=== PATIENT | female | born 1980 | race Caucasian/White ===

== ENCOUNTER → 2018-09-20 | Outpatient (CLI) | payer BC ==
[~2018-09-20] MED LIST: CEPH500C PO; CETI10CA PO; DOCU100C37 PO; FERR-84 PO; IBP600T1 PO; IBUP-1773 PO; METO25TA2 PO; OXYC-471 PO; PREN1TAB39; VALA500T4 PO
--- NOTE | 2018-09-20 16:46 | Diagnostic Imaging Report ---
INDICATION: patient, survey. TECHNIQUE: Multiple real-time grayscale images were obtained over the gravid uterus. COMPARISON: None. FINDINGS: A single live intrauterine fetus is seen measuring at 20 weeks 3 days in size by composite measurements. Fetus is in cephalic presentation. Amniotic fluid appears qualitatively normal. Cervical length is 5.1 cm. Placenta is grade 2 and fundal with no evidence of previa. heart rate is 143 beats per minute. Maternal adnexa could not be visualized. survey showed no detectable abnormalities with normal-appearing kidneys, bladder, stomach, and intracranial ventricles. Four-chamber heart view is unremarkable. Three-vessel cord and cord insertion were normal. spine appeared unremarkable. Biometrical measurements are as follows: Biparietal 4.5 cm, age 19 weeks 5 days. Head circumference 16.88 cm, age 19 weeks 4 days. Abdominal circumference 16.49 cm, age 21 weeks 4 days. Femur length 3.33 cm, age 20 weeks 3 days. Sonographic estimate age: 20 weeks 3 days. Sonographic estimated date of delivery: 02/04/2018. Estimated Weight: 380 gm (+/- 56 gm). LMP percentile: 98%. heart rate: 143 beats per minute. number: 1 of 1. IMPRESSION: Single live intrauterine fetus measuring 20 weeks 3 days in size with no detectable abnormalities. Dictated by: Dictated on workstation # [id number]
== END ==
LOC: RAD 15:19
PROVIDERS: ATTEND Obstetrics & Gynecology
DX: Z36.89 Encounter for other specified antenatal screening (principal); Z3A.20 20 weeks gestation of pregnancy
CPT/HCPCS: 76805

== ENCOUNTER 2019-01-31 15:26 | Outpatient (CLI) | payer BC, MEDICAID ==
[~2019-01-31] VITALS: Ht 165.1 cm; Wt 91.7 kg
== END 2019-01-31 16:15 | disposition home or self-care (01) ==
LOC: PREOP 15:26
PROVIDERS: ATTEND Obstetrics & Gynecology
DX: Z01.818 Encounter for other preprocedural examination (principal)
CPT/HCPCS: 87081

== ENCOUNTER 2019-02-04 04:31 | Inpatient (IN) | payer BC, MEDICAID ==
[2019-02-04] VITALS (7 sets, daily range): BP systolic 130–162; BP diastolic 76–92
[~2019-02-04] VITALS: Ht 167.6 cm; Wt 94.4 kg
[2019-02-04] MEDS ORDERED: LACTATED RINGERS 1,000 ML IV ONE (04:53)
[2019-02-04] MEDS ORDERED: CITRIC ACID/SOB CIT (BICITRA) 30 ML UDC ONE (04:53)
[2019-02-04] MEDS ORDERED: ceFAZolin 2 GM IV Premixed 50 ML ONE (04:53)
[2019-02-04] MEDS ORDERED: METOCLOPRAMIDE INJ 10 MG/2 ML (REGLAN) ONE (04:53)
[2019-02-04] MEDS ORDERED: FAMOTIDINE 20MG/2ML IV (PEPCID) ONE (04:53)
--- NOTE | 2019-02-04 06:05 | NUR ---
MONICA WHITMORE presented to unit via ambulation from home, for repeat section. MONICA WHITMORE weighed, gowned, voided, and to bed. EFHM and TOCO applied, VS taken. MONICA WHITMORE oriented to bed controls, call light, TV, heat, and A/C controls.
[2019-02-04] MEDS ORDERED: LACTATED RINGERS 1,000 ML IV PRN (06:12)
--- OUTSIDE RECORDS SUMMARY | 2019-02-04 06:14 | XMS REPORT ---
Author Author MORGANJOSE Organization [facility] Address [address] [place] [address] Care Team Providers Care Spareribs Trimmer Name Role Phone MORGANJOSE Baron Unavailable PROBLEMS Type Condition ICD9-CM Code [id number] Code Onset Dates Condition Status SNOMED Code Problem Unspecified myalgia and myositis 729.1 Active 844413580 Problem Other malaise and fatigue 780.79 Active 114836411 ALLERGIES Substance Reaction Event Type Date Status N.K.D.A. Unknown Non Drug Allergy Sep, Unknown SOCIAL HISTORY No smoking Hx information available PLAN OF CARE Activity Details Follow Up prn Reason: VITAL SIGNS Height 66 in 2016-10-11 Weight 181 lbs 2016-10-11 Temperature 97.7 degrees Fahrenheit 2016-10-11 Heart Rate 88 bpm 2016-10-11 Respiratory Rate 16 2016-10-11 BMI 29.21 kg/m2 2016-10-11 Blood pressure systolic 128 mmHg 2016-10-11 Blood pressure diastolic 88 mmHg 2016-10-11 MEDICATIONS Medication Instructions Dosage Frequency Start Date End Date Duration Status iron 1 tab Active Amoxicillin 500 MG Orally every 12 hrs 1 capsule 12h Sep, Sep, 10 day(s) Active ZyrTEC Active Zinc ... Orally Once a day 1 tablet 24h Active RESULTS Name Result Date Reference Range STREP A (IN HOUSE) 2016-10-13 STREP A Positive Control + Lot # [id number] Exp date 05/02/18 PROCEDURES Procedure Date Ordered Related Diagnosis Body Site STREP A ASSAY W/OPTIC Oct 11, 2016 Office Visit, Est Pt., Level 3 Oct 11, 2016 IMMUNIZATIONS No Known Immunizations
--- OUTSIDE RECORDS SUMMARY | 2019-02-04 06:14 | XMS REPORT ---
Author Author Migration, Doctor Organization [facility] Address Unknown Phone Unavailable Care Team Providers Care Metal Reed Tuner Name Role Phone Migration, Doctor Unavailable Unavailable PROBLEMS Type Condition ICD9-CM Code [id number] Code Onset Dates Condition Status SNOMED Code Problem Other malaise and fatigue 780.79 Active 004680072 Problem Unspecified myalgia and myositis 729.1 Active 053713010 ALLERGIES No Information ENCOUNTERS Encounter Location Date Diagnosis [facility] [id number] [place] [phone] 15 Apr, 2017 Middle ear effusion, right H65.91 [facility] [id number] [place] [phone] 17 Sep, 2016 Sore throat J02.9 and Strep pharyngitis J02.0 [facility] [id number] [place] [phone] Jan, [facility] [id number] [place] [phone] Jan, [facility] [id number] [place] [phone] Dec, [facility] [id number] [place] [address] [phone] Dec, [facility] [id number] [place] [phone] Apr, IMMUNIZATIONS No Known Immunizations SOCIAL HISTORY Never Assessed REASON FOR VISIT EMR-[facility] PLAN OF CARE VITAL SIGNS MEDICATIONS Medication Instructions Dosage Frequency Start Date End Date Duration Status Metoprolol Tartrate 25 mg take 1/2 tablet once daily Dec, Active RESULTS No Results PROCEDURES No Known procedures INSTRUCTIONS MEDICATIONS ADMINISTERED No Known Medications MEDICAL (GENERAL) HISTORY Type Description Date Surgical History section
--- OUTSIDE RECORDS SUMMARY | 2019-02-04 06:14 | XMS REPORT | Clinical Summary ---
Author Author [facility] Organization [facility] Address Unknown Phone Unavailable Care Team Providers Care Room Service Server Name Role Phone Patrick Pool MD PCP Beena Nicholas MD Unavailable Source Comments Some departments are not documenting in the electronic medical record. If you do not see the information that you expected, contact Release of Information in the Health Information Management department at [phone] for further assistance in locating additional records.[facility] Allergies No Known Allergies Medications End Date Status Medication Sig Dispensed Refills Start Date Active enalapril (VASOTEC) 10 mg Take 10 mg by 0 tablet mouth daily. Active Problems Problem Noted Date Gestational trophoblastic disease 10/10/2013 Overview: 10/10/13 CT CHEST W/CONTRAST Component Value Range Impression Value: CT CHEST W/CONTRAST IMPRESSION: CHEST: 1. 3 MM NODULAR OPACITY IN THE LEFT UPPER LOBE WHICH LIKELY REPRESENTS A SMALL SCAR OR GRANULOMA. CONTINUED CT SURVEILLANCE IS SUGGESTED. 2. NO THORACIC LYMPHADENOPATHY. ABDOMEN/PELVIS: 1. NO EVIDENCE OF ABDOMINOPELVIC METASTATIC DISEASE. 2. TRACE PELVIC FREE FLUID WHICH IS LIKELY PHYSIOLOGIC. Started weekly methotrexate at 50 mg/m2 On 10/13/2013 with cycle #4 on 11/03/2013., #5 on 11/10/2013. B-hC10/12/2013: 6; 10/20/2013: 4; 10/27/2013: < 2.0; 11/03/13: < 2; 11/10/2013: < 2; 11/18/2013: < 2 L ast Assessment & Plan: 11/21/2013. Clinically she is doing well and has recovered from her last shot of MTX which was given on 11/10/2013. She had no problems except for a sweet taste at the back of her tongue, she is still having FAGAN behind her Right ear, but her PCP is continuing that work up. On examination, her uterus is small, approximately 6 week size. PLAN: Monthly B-hCG x 12 months. Remain on OCPs for 1 year. I did tell her that she can switch to the 3 month packet to reduce her menstrual cycle number. Once she is off OCPs, should she desire another , as soon as she misses a period, she is to perform a urine test and then proceed to her competitive intelligence manager for serum B-hCG. Recurrence risk was re discussed as 3-9%. To keep her appointment with Dr. Foote in 12/2013. If evidence for recurrence, I will see her back. Elevated serum hCG 10/10/2013 HTN (hypertension) 10/10/2013 Persistent headaches 10/10/2013 Social History Date Tobacco Use Types Packs/Day Years Used Never Assessed Sex Assigned at Date Recorded Not on file Industry Job Start Date Occupation Not on file Not on file Not on file Travel End Travel History Travel Start No recent travel history available. Last Filed Vital Signs Time Taken Vital Sign Reading 11/21/2013 4:49 PM [employer] Blood Pressure 132/80 11/21/2013 4:49 PM [employer] Pulse 76 11/21/2013 4:49 PM [employer] Temperature 36.9 C (98.4 F) - Respiratory Rate - 11/21/2013 4:49 PM [employer] Oxygen Saturation 100% - Inhaled Oxygen - Concentration 11/21/2013 4:49 PM [employer]ITARY INSPECT[employer] Weight 69.5 kg (153 lb 3.2 oz) 11/21/2013 4:49 PM [employer]ARY INSPECT[employer] Height 163.8 cm (5' 4.5") 11/21/2013 4:49 PM [employer]ITARY INSPECTOR Body Mass Index 25.89 Plan of Treatment Health Maintenance Due Date Last Done Comments PHYSICAL (COMPREHENSIVE) 1989 EXAM HIV SCREENING 1997 DTAP/TDAP VACCINES (1 - 2000 Tdap) CERVICAL CANCER SCREENING 2012 INFLUENZA VACCINE 05/26/2019 Results Not on filefrom Last 3 Months Insurance Type Payer Benefit Subscriber ID Effective Phone Address Plan / Dates Group PPO [employer] xxxxxxxxxxxx [id number] PREF CARE resent Advance Directives Patient has advance care planning documents on file. For more information, please contact: [address] [address]
--- OUTSIDE RECORDS SUMMARY | 2019-02-04 06:14 | XMS REPORT ---
Author Author ELENI DENNISON Organization [facility] Address [address] [place] [address] Care Team Providers Care Roller Printer Name Role Phone ELENI DENNISON Unavailable PROBLEMS Type Condition ICD9-CM Code URN11-OR Code Onset Dates Condition Status SNOMED Code Problem Unspecified myalgia and myositis 729.1 Active 475825078 Problem Other malaise and fatigue 780.79 Active 244554893 ALLERGIES No Known Allergies ENCOUNTERS Encounter Location Date Diagnosis [facility] [id number] [place] [phone] Apr, Middle ear effusion, right H65.91 [facility] [id number] [place] [phone] Sep, 2016 Sore throat J02.9 and Strep pharyngitis J02.0 [facility] [id number] [place] [phone] 14 Jan, 2015 [place] [id number] [place] [phone] Jan, [facility] [id number] [place] [phone] Dec, [place] [id number] [place] [phone] Dec, [address] [phone] Apr, IMMUNIZATIONS No Known Immunizations SOCIAL HISTORY Never Assessed REASON FOR VISIT Right ear pain for about 3 days JStrasserRN PLAN OF CARE Activity Details Follow Up prn Reason: VITAL SIGNS Height 66 in 2017-05-09 Weight 167.2 lbs 2017-05-09 Temperature 97.9 degrees Fahrenheit 2017-05-09 Heart Rate 80 bpm 2017-05-09 Respiratory Rate 18 2017-05-09 BMI 26.98 kg/m2 2017-05-09 Blood pressure systolic 128 mmHg 2017-05-09 Blood pressure diastolic 90 mmHg 2017-05-09 MEDICATIONS Medication Instructions Dosage Frequency Start Date End Date Duration Status PredniSONE 20 MG Orally Once a day 2 tablet 24h Apr, Apr, 5 days Active RESULTS No Results PROCEDURES No Known procedures INSTRUCTIONS MEDICATIONS ADMINISTERED No Known Medications MEDICAL (GENERAL) HISTORY Type Description Date Surgical History section
[2019-02-04] MEDS ORDERED: ceFAZolin 2 GM IV Premixed 50 ML IV ONE (06:15)
--- OUTSIDE RECORDS SUMMARY | 2019-02-04 06:15 | XMS REPORT | Continuity of Care Document ---
Author Organization Unknown Address Unknown Allergies Active Description Code Type Severity Reaction Onset Reported/Identified Relationship to Patient Clinical Status Yes No Known Drug Allergies [id number] Drug Allergy Mild N/A 12/09/2009 Yes hydrocodone [id number] Drug Allergy Moderate GI UPSET 09/11/2016 Medications There is no data. Problems Date Dx Coded Attending Type Code Diagnosis Diagnosed By 03/01/2010 Ot 285.9 ANEMIA NOS 03/01/2010 Ot 648.22 ANEMIA- DELIVERED W P/P 03/01/2010 Ot 654.21 PREV DELIVRY W/ OR W/O MENT ANT 03/01/2010 Ot V27.0 DELIVER- SINGLE LIVEBORN 05/04/2010 ARIANA JARAMILLO DO 461.9 ACUTE SINUSITIS, UNSPECIFIED 05/26/2011 ARIANA JARAMILLO DO V70.5 PREEMPLOYMENT/PRESCHOOL EXAM 01/03/2014 ARIANA JARAMILLO DO 729.1 MYALGIA AND MYOSITIS UNSPECIFIED 01/03/2014 ARIANA JARAMILLO DO 780.79 OTHER MALAISE AND FATIGUE 09/05/2014 DEYANIRA THOMAS Ot 236.1 [facility] 09/05/2014 DEYANIRA THOMAS Ot V58.69 OT MED,LT,CURRENT USE 09/08/2014 MAN SCHULZ TECHNICAL OPERATIONS MANAGER Ot 729.81 09/08/2014 MAN SCHULZ TECHNICAL OPERATIONS MANAGER Ot 236.1 09/08/2014 MAN SCHULZ TECHNICAL OPERATIONS MANAGER Ot V58.69 09/08/2014 DEYANIRA THOMAS Ot 236.1 09/08/2014 DEYANIRA THOMAS Ot V58.69 09/14/2014 MAN SCHULZ TECHNICAL OPERATIONS MANAGER Ot 236.1 09/14/2014 MAN SCHULZ TECHNICAL OPERATIONS MANAGER Ot V58.69 09/27/2014 DEYANIRA THOMAS Ot 236.1 09/27/2014 DEYANIRA THOMAS Ot V58.69 09/27/2014 MARTHA, BOBAN N Ot 236.1 09/27/2014 MARTHA, BOBAN N Ot V58.69 09/28/2014 MARTHA, BOBAN N Ot 236.1 09/28/2014 MARTHA, BOBAN N Ot V58.69 10/09/2014 MAN SCHULZ S TECHNICAL OPERATIONS MANAGER Ot 729.81 10/09/2014 SCHULZIVONAH S TECHNICAL OPERATIONS MANAGER Ot 236.1 10/09/2014 ZEUS HILAH S TECHNICAL OPERATIONS MANAGER Ot V58.69 10/09/2014 MARTHA, BOBAN N Ot 236.1 10/09/2014 MARTHA, BOBAN N Ot V58.69 11/23/2014 IVON SCHULZAH S TECHNICAL OPERATIONS MANAGER Ot 729.81 11/23/2014 IVON SCHULZAH S TECHNICAL OPERATIONS MANAGER Ot 236.1 11/23/2014 SCHULZ HILAH S TECHNICAL OPERATIONS MANAGER Ot V58.69 11/23/2014 MARTHA, BOBAN N Ot 236.1 11/23/2014 MARTHA, BOBAN N Ot V58.69 11/24/2014 MARTHA, BOBAN N Ot 236.1 11/24/2014 MARTHA, BOBAN N Ot V58.69 12/14/2014 MARTHA, BOBAN N Ot 236.1 12/14/2014 MARTHA, BOBAN N Ot V58.69 12/26/2014 MARTHA, BOBAN N Ot 236.1 [facility] 12/26/2014 MARTHA, BOBAN N Ot V58.69 OT MED,LT,CURRENT USE 01/24/2015 MAN SCHULZ S TECHNICAL OPERATIONS MANAGER Ot 729.81 01/24/2015 MAN SCHULZ S TECHNICAL OPERATIONS MANAGER Ot 236.1 01/24/2015 SCHULZIVONAH S TECHNICAL OPERATIONS MANAGER Ot V58.69 01/24/2015 MARTHA, BOBAN N Ot 236.1 01/24/2015 MARTHA, BOBAN N Ot V58.69 01/29/2015 MARTHA, BOBAN N Ot 236.1 01/29/2015 MARTHA, BOBAN N Ot V58.69 01/29/2015 MARTHA, BOBAN N Ot 236.1 01/29/2015 MARTHA, BOBAN N Ot V58.69 01/30/2015 MARTHA, BOBAN N Ot 236.1 01/30/2015 DEYANIRA THOMAS N Ot V58.69 02/07/2015 DEYANIRA THOMAS N Ot 236.1 02/07/2015 DEYANIRA THOMAS N Ot V58.69 03/24/2015 DEYANIRA THOMAS N Ot 236.1 03/24/2015 DEYANIRA THOMAS N Ot V58.69 04/13/2015 MAN SCHULZ S TECHNICAL OPERATIONS MANAGER Ot 236.1 04/13/2015 MAN SCHULZ S TECHNICAL OPERATIONS MANAGER Ot V58.69 04/13/2015 SCHULZMAN Stephens S TECHNICAL OPERATIONS MANAGER Ot 729.81 04/13/2015 SCHULZMAN Stephens S TECHNICAL OPERATIONS MANAGER Ot 236.1 04/13/2015 MAN SCHULZ S TECHNICAL OPERATIONS MANAGER Ot V58.69 04/13/2015 DEYANIRA THOMAS N Ot 236.1 04/13/2015 DEYANIRA THOMAS N Ot V58.69 04/13/2015 SCHULZ, HILAH S TECHNICAL OPERATIONS MANAGER Ot 236.1 04/13/2015 MAN SCHULZ S TECHNICAL OPERATIONS MANAGER Ot V58.69 04/29/2015 DEYANIRA THOMAS N Ot 236.1 [facility] 04/29/2015 DEYANIRA THOMAS N Ot V58.69 OTH MED,LT,CURRENT USE 06/12/2016 MAN SCHULZ S TECHNICAL OPERATIONS MANAGER Ot 729.81 SWELLING OF LIMB 06/12/2016 SCHULZMAN Stephens S TECHNICAL OPERATIONS MANAGER Ot 236.1 [facility] 06/12/2016 MAN SCHULZ S TECHNICAL OPERATIONS MANAGER Ot V58.69 OTH MED,LT,CURRENT USE 06/12/2016 MAN SCHULZ S TECHNICAL OPERATIONS MANAGER Ot 236.1 [facility] 06/12/2016 MAN SCHULZ S TECHNICAL OPERATIONS MANAGER Ot V58.69 OTH MED,LT,CURRENT USE 06/12/2016 DEYANIRA THOMAS N Ot 236.1 [facility] 06/12/2016 DEYANIRA THOMAS N Ot V58.69 OTH MED,LT,CURRENT USE 06/25/2016 SCHULZMAN Stephens S TECHNICAL OPERATIONS MANAGER Ot 729.81 SWELLING OF LIMB 06/25/2016 SCHULZIVONAH S TECHNICAL OPERATIONS MANAGER Ot 236.1 [facility] 06/25/2016 SCHULZMAN Stephens S TECHNICAL OPERATIONS MANAGER Ot V58.69 OTH MED,LT,CURRENT USE 06/25/2016 MAN SCHULZ TECHNICAL OPERATIONS MANAGER Ot 236.1 [facility] 06/25/2016 MAN SCHULZ TECHNICAL OPERATIONS MANAGER Ot V58.69 OTH MED,LT,CURRENT USE 06/25/2016 DEYANIRA THOMAS Ot 236.1 [facility] 06/25/2016 DEYANIRA THOMAS Ot V58.69 OTH MED,LT,CURRENT USE 07/07/2016 MAN SCHULZ TECHNICAL OPERATIONS MANAGER Ot 729.81 SWELLING OF LIMB 07/07/2016 MAN SCHULZ S TECHNICAL OPERATIONS MANAGER Ot 236.1 [facility] 07/07/2016 MAN SCHULZ TECHNICAL OPERATIONS MANAGER Ot V58.69 OTH MED,LT,CURRENT USE 07/07/2016 SCHULZMAN Stephens S TECHNICAL OPERATIONS MANAGER Ot 236.1 [facility] 07/07/2016 MAN SCHULZ TECHNICAL OPERATIONS MANAGER Ot V58.69 OTH MED,LT,CURRENT USE 07/07/2016 DEYANIRA THOMAS Ot 236.1 [facility] 07/07/2016 DEYANIRA THOMAS Ot V58.69 OTH MED,LT,CURRENT USE 07/07/2016 TONY LINDO, JORGE A Doyle Ot O36.8190 DECREASED MOVEMENTS, UNSP TRIMESTE 07/07/2016 TONY LINDO, JORGE A Doyle Ot Z3A.00 WEEKS OF GESTATION OF NOT SPEC 07/20/2016 MAN SCHULZ TECHNICAL OPERATIONS MANAGER Ot 729.81 SWELLING OF LIMB 07/20/2016 MAN SCHLUZ S TECHNICAL OPERATIONS MANAGER Ot 236.1 [facility] 07/20/2016 MAN SCHULZ TECHNICAL OPERATIONS MANAGER Ot V58.69 OTH MED,LT,CURRENT USE 07/20/2016 MAN SCHULZ TECHNICAL OPERATIONS MANAGER Ot 236.1 [facility] 07/20/2016 MAN SCHULZ S TECHNICAL OPERATIONS MANAGER Ot V58.69 OTH MED,LT,CURRENT USE 07/20/2016 DEYANIRA THOMAS Ot 236.1 [facility] 07/20/2016 DEYANIRA THOMAS Ot V58.69 OTH MED,LT,CURRENT USE 09/11/2016 Ot 401.9 HYPERTENSION NOS 09/11/2016 Ot 782.62 FLUSHING 09/11/2016 Ot 784.0 HEADACHE 09/11/2016 DEYANIRA THOMAS Raven Ot 236.1 [facility] 09/11/2016 DEYANIRA THOMAS Ot V58.69 OTH MED,LT,CURRENT USE 09/11/2016 REBA BEAL DO Ot O34.211 MATERN CARE FOR LOW TRANSVERSE SCAR FROM 09/11/2016 EMIGDIO PINEDA REBA Stephens Ot Z01.818 ENCOUNTER FOR OTHER PREPROCEDURAL EXAMIN 09/11/2016 EMIGDIO PINEDA REBA Angelo Ot Z11.2 ENCOUNTER FOR SCREENING FOR OTHER BACTER 09/11/2016 EMIGDIO PINEDA REBA S Ot Z3A.00 WEEKS OF GESTATION OF NOT SPEC 09/12/2016 EMIGDIO PINEDA REBA S Ot O34.211 MATERN CARE FOR LOW TRANSVERSE SCAR FROM 09/12/2016 EMIGDIO PINEDA REBA S Ot Z01.818 ENCOUNTER FOR OTHER PREPROCEDURAL EXAMIN 09/12/2016 EMIGDIO PINEDA REBA S Ot Z11.2 ENCOUNTER FOR SCREENING FOR OTHER BACTER 09/12/2016 EMIGDIO PINEDA REBA Stephens Ot Z3A.00 WEEKS OF GESTATION OF NOT SPEC 09/12/2016 EMIGDIO PINEDA REBA S Ot O13.3 GESTATIONAL HTN W/O SIGNIFICANT PROTEINU 09/21/2016 EMIGDIO PINEDA REBA S Ot O14.04 MILD TO MODERATE PRE-ECLAMPSIA, COMPLICA 09/21/2016 EMIGDIO PINEDA REBA S Ot O34.211 MATERN CARE FOR LOW TRANSVERSE SCAR FROM 09/21/2016 EMIGDIO PINEDA REBA S Ot Z37.0 SINGLE LIVE 09/21/2016 EMIGDIO PINEDA REBA S Ot Z3A.39 39 WEEKS GESTATION OF 09/20/2018 EMIGDIO PINEDAREBA S Ot Z36.89 ENCOUNTER FOR OTHER SPECIFIED 09/20/2018 BELTRANECH DO REBA S Ot Z3A.20 20 WEEKS GESTATION OF 10/18/2018 BELTRANECH DOREBA S Ot Z36.89 ENCOUNTER FOR OTHER SPECIFIED 10/18/2018 FENECH DO REBA S Ot Z3A.20 20 WEEKS GESTATION OF 11/24/2018 BELTRANECH DOREBA S Ot Z36.89 ENCOUNTER FOR OTHER SPECIFIED 11/24/2018 FENECH DO REBA S Ot Z3A.20 20 WEEKS GESTATION OF 12/31/2018 MAN SCHULZP Ot 729.81 SWELLING OF LIMB 12/31/2018 MAN SCHULZ TECHNICAL OPERATIONS MANAGER Ot 236.1 [facility] 12/31/2018 MAN SCHULZ TECHNICAL OPERATIONS MANAGER Ot V58.69 OTH MED,LT,CURRENT USE 12/31/2018 MAN SCHULZ TECHNICAL OPERATIONS MANAGER Ot 236.1 [facility] 12/31/2018 MAN SCHULZ TECHNICAL OPERATIONS MANAGER Ot V58.69 OTH MED,LT,CURRENT USE 12/31/2018 DEYANIRA THOMAS Ot 236.1 [facility] 12/31/2018 DEYANIRA THOMAS Ot V58.69 OTH MED,LT,CURRENT USE 12/31/2018 FENECH DO REBA S Ot O13.3 GESTATIONAL HTN W/O SIGNIFICANT PROTEINU 12/31/2018 FENECH DO REBA S Ot Z36.89 ENCOUNTER FOR OTHER SPECIFIED 12/31/2018 FENECH DO REBA S Ot Z3A.20 20 WEEKS GESTATION OF 01/18/2019 FENECH DO REBA S Ot Z36.89 ENCOUNTER FOR OTHER SPECIFIED 01/18/2019 FENECH DO REBA S Ot Z3A.20 20 WEEKS GESTATION OF 02/01/2019 FENECH DO, REBA S Ot Z01.818 ENCOUNTER FOR OTHER PREPROCEDURAL EXAMIN Procedures Code Description Performed By Performed On 74.1 LOW CERVICAL 02/26/2010 82C40L1 EXTRACTION OF POC, LOW CERVICAL, OPEN AP 09/19/2016 Results Test Result Range Methicillin resistant Staphylococcus aureus (MRSA) screening culture - 15:45 Methicillin resistant Staphylococcus aureus (MRSA) screening culture NEG NRG Complete blood count (CBC) with automated white blood cell (WBC) differential - 09/11/16 17:06 Blood leukocytes automated count (number/volume) 12.4 10*3/uL 4.3-11.0 Blood erythrocytes automated count (number/volume) 4.04 10*6/uL 4.35-5.85 Venous blood hemoglobin measurement (mass/volume) 11.2 g/dL 11.5-16.0 Blood hematocrit (volume fraction) 34 % 35-52 Automated erythrocyte mean corpuscular volume 84 [foz_us] 80-99 Automated erythrocyte mean corpuscular hemoglobin (mass per erythrocyte) 28 pg 25-34 Automated erythrocyte mean corpuscular hemoglobin concentration measurement ( mass/volume) 33 g/dL 32-36 Automated erythrocyte distribution width ratio 14.8 % 10.0-14.5 Automated blood platelet count (count/volume) 218 10*3/uL 130-400 Automated blood platelet mean volume measurement 10.4 [foz_us] 7.4-10.4 Automated blood neutrophils/100 leukocytes 81 % 42-75 Automated blood lymphocytes/100 leukocytes 11 % 12-44 Blood monocytes/100 leukocytes 8 % 0-12 Automated blood eosinophils/100 leukocytes 0 % 0-10 Automated blood basophils/100 leukocytes 0 % 0-10 Blood neutrophils automated count (number/volume) 10.0 10*3 1.8-7.8 Blood lymphocytes automated count (number/volume) 1.3 10*3 1.0-4.0 Blood monocytes automated count (number/volume) 0.9 10*3 0.0-1.0 Automated eosinophil count 0.1 10*3/uL 0.0-0.3 Automated blood basophil count (count/volume) 0.0 10*3/uL 0.0-0.1 Comprehensive metabolic panel - 09/11/16 17:06 Serum or plasma sodium measurement (moles/volume) 138 mmol/L 135-145 Serum or plasma potassium measurement (moles/volume) 4.1 mmol/L 3.6-5.0 Serum or plasma chloride measurement (moles/volume) 106 mmol/L 98-107 Carbon dioxide 24 mmol/L 21-32 Serum or plasma anion gap determination (moles/volume) 8 mmol/L 5-14 Serum or plasma urea nitrogen measurement (mass/volume) 7 mg/dL 7-18 Serum or plasma creatinine measurement (mass/volume) 0.58 mg/dL 0.60-1.30 Serum or plasma urea nitrogen/creatinine mass ratio 12 NRG Serum or plasma creatinine measurement with calculation of estimated glomerular filtration rate > NRG Serum or plasma glucose measurement (mass/volume) 88 mg/dL 70-105 Serum or plasma calcium measurement (mass/volume) 9.2 mg/dL 8.5-10.1 Serum or plasma total bilirubin measurement (mass/volume) 0.2 mg/dL 0.1-1.0 Serum or plasma alkaline phosphatase measurement (enzymatic activity/volume) 145 U/L 40-136 Serum or plasma aspartate aminotransferase measurement (enzymatic activity/ volume) 17 U/L 5-34 Serum or plasma alanine aminotransferase measurement (enzymatic activity/volume ) 15 U/L 0-55 Serum or plasma protein measurement (mass/volume) 6.8 g/dL 6.4-8.2 Serum or plasma albumin measurement (mass/volume) 3.5 g/dL 3.2-4.5 Serum or plasma uric acid measurement (mass/volume) - 09/11/16 17:06 Serum or plasma uric acid measurement (mass/volume) 2.9 mg/dL 2.6-7.2 Complete urinalysis with reflex to culture - 09/19/16 06:10 Urine color determination YELLOW NRG Urine clarity determination CLEAR NRG Urine pH measurement by test strip 6.5 5-9 Specific gravity of urine by test strip 1.015 1.016- 1.022 Urine protein assay by test strip, semi-quantitative 1+ NEGATIVE Urine glucose detection by automated test strip NEGATIVE NEGATIVE Erythrocytes detection in urine sediment by light microscopy NEGATIVE NEGATIVE Urine ketones detection by automated test strip NEGATIVE NEGATIVE Urine nitrite detection by test strip NEGATIVE NEGATIVE Urine total bilirubin detection by test strip NEGATIVE NEGATIVE Urine urobilinogen measurement by automated test strip (mass/volume) NORMAL NORMAL Urine leukocyte esterase detection by dipstick NEGATIVE NEGATIVE Automated urine sediment erythrocyte count by microscopy (number/high power field) NONE NRG Automated urine sediment leukocyte count by microscopy (number/high power field ) RARE NRG Bacteria detection in urine sediment by light microscopy NEGATIVE NRG Squamous epithelial cells detection in urine sediment by light microscopy 25-50 NRG Crystals detection in urine sediment by light microscopy NONE NRG Casts detection in urine sediment by light microscopy NONE NRG Mucus detection in urine sediment by light microscopy NEGATIVE NRG Complete urinalysis with reflex to culture NO NRG Complete blood count (CBC) with automated white blood cell (WBC) differential - 09/19/16 06:55 Blood leukocytes automated count (number/volume) 10.8 10*3/uL 4.3-11.0 Blood erythrocytes automated count (number/volume) 3.94 10*6/uL 4.35-5.85 Venous blood hemoglobin measurement (mass/volume) 10.8 g/dL 11.5-16.0 Blood hematocrit (volume fraction) 33 % 35-52 Automated erythrocyte mean corpuscular volume 84 [foz_us] 80-99 Automated erythrocyte mean corpuscular hemoglobin (mass per erythrocyte) 27 pg 25-34 Automated erythrocyte mean corpuscular hemoglobin concentration measurement ( mass/volume) 33 g/dL 32-36 Automated erythrocyte distribution width ratio 14.8 % 10.0-14.5 Automated blood platelet count (count/volume) 194 10*3/uL 130-400 Automated blood platelet mean volume measurement 10.5 [foz_us] 7.4-10.4 Automated blood neutrophils/100 leukocytes 78 % 42-75 Automated blood lymphocytes/100 leukocytes 12 % 12-44 Blood monocytes/100 leukocytes 9 % 0-12 Automated blood eosinophils/100 leukocytes 1 % 0-10 Automated blood basophils/100 leukocytes 0 % 0-10 Blood neutrophils automated count (number/volume) 8.5 10*3 1.8-7.8 Blood lymphocytes automated count (number/volume) 1.3 10*3 1.0-4.0 Blood monocytes automated count (number/volume) 1.0 10*3 0.0-1.0 Automated eosinophil count 0.1 10*3/uL 0.0-0.3 Automated blood basophil count (count/volume) 0.0 10*3/uL 0.0-0.1 Blood type T Indirect antibody screen panel - 09/19/16 06:55 ABO+Rh group OP NRG Transfusion band number [id number] Blood group antibody screen NEGATIVE NR Complete blood count (CBC) with automated white blood cell (WBC) differential - 09/20/16 05:55 Blood leukocytes automated count (number/volume) 13.0 10*3/uL 4.3-11.0 Blood erythrocytes automated count (number/volume) 3.34 10*6/uL 4.35-5.85 Venous blood hemoglobin measurement (mass/volume) 9.2 g/dL 11.5-16.0 Blood hematocrit (volume fraction) 28 % 35-52 Automated erythrocyte mean corpuscular volume 84 [foz_us] 80-99 Automated erythrocyte mean corpuscular hemoglobin (mass per erythrocyte) 28 pg 25-34 Automated erythrocyte mean corpuscular hemoglobin concentration measurement ( mass/volume) 33 g/dL 32-36 Automated erythrocyte distribution width ratio 14.9 % 10.0-14.5 Automated blood platelet count (count/volume) 177 10*3/uL 130-400 Automated blood platelet mean volume measurement 10.6 [foz_us] 7.4-10.4 Automated blood neutrophils/100 leukocytes 77 % 42-75 Automated blood lymphocytes/100 leukocytes 13 % 12-44 Blood monocytes/100 leukocytes 10 % 0-12 Automated blood eosinophils/100 leukocytes 0 % 0-10 Automated blood basophils/100 leukocytes 0 % 0-10 Blood neutrophils automated count (number/volume) 10.0 10*3 1.8-7.8 Blood lymphocytes automated count (number/volume) 1.6 10*3 1.0-4.0 Blood monocytes automated count (number/volume) 1.3 10*3 0.0-1.0 Automated eosinophil count 0.0 10*3/uL 0.0-0.3 Automated blood basophil count (count/volume) 0.0 10*3/uL 0.0-0.1 Methicillin resistant Staphylococcus aureus (MRSA) screening culture - 15:45 Methicillin resistant Staphylococcus aureus (MRSA) screening culture NEG NRG Encounters ACCT No. Visit Date/Time Discharge Status Pt. Type Provider Facility Loc./Unit Complaint [id number] 01/03/2014 17:33:00 01/03/2014 23:59:59 CLS Outpatient ARIANA JARAMILLO DO [place] 03/07/2015 12:48:23 ACT Document Registration [id number] 01/31/2019 15:26:00 01/31/2019 16:15:00 DIS Outpatient REBA BEAL DO [facility] PREOP REPEAT SECTION [id number] 09/20/2018 15:19:00 09/20/2018 23:59:59 CLS Outpatient REBA BEAL DO [facility] RAD [id number] 09/19/2016 06:10:00 09/21/2016 12:15:00 DIS Inpatient REBA BEAL DO [facility] LDRP PREVIOUS SECTION [id number] 09/11/2016 16:54:00 09/11/2016 23:59:59 CLS Outpatient REBA BEAL DO [facility] LAB GESTATIONAL HYPERTENSION [id number] 09/11/2016 15:18:00 09/11/2016 16:00:00 DIS Outpatient REBA BEAL DO [facility] PREOP PREVIOUS SECTION [id number] 07/07/2016 17:33:00 07/07/2016 19:25:00 DIS Outpatient JORGE A JIMENEZ MD [facility] WSo DECREASED MOVEMENT [id number] 04/30/2015 00:13:00 04/30/2015 23:59:59 CLS Preadmit DEYANIRA THOMAS [facility] ONC [id number] 01/29/2015 10:42:00 04/29/2015 00:01:00 DIS Outpatient DEYANIRA THOMAS Raven [facility] ONC [id number] 03/07/2015 12:47:00 03/07/2015 23:59:59 CLS Outpatient MAN SCHULZ [facility] ONC [id number] 11/09/2014 14:18:00 11/09/2014 23:59:59 CLS Outpatient MARTHASILVINAJENNYFER Carbajal [facility] ONC [id number] 08/25/2014 13:21:00 09/05/2014 00:01:00 DIS Outpatient DEYANIRA THOMAS Raven [facility] ONC [id number] 08/30/2014 15:13:00 08/30/2014 23:59:59 CLS Outpatient MAN SCHULZ [facility] ONC [id number] 05/18/2014 13:48:00 05/18/2014 23:59:59 CLS Outpatient MAN SCHULZ [facility] RAD SWELLING, RT AXILLA [id number] 05/17/2014 08:26:00 05/17/2014 23:59:59 CLS Outpatient [id number] 05/10/2014 13:38:00 05/10/2014 23:59:59 CLS Outpatient [id number] 04/11/2014 10:36:00 04/11/2014 23:59:59 CLS Outpatient [id number] 03/13/2014 14:29:00 03/13/2014 23:59:59 CLS Outpatient [id number] 01/19/2014 09:32:00 01/19/2014 23:59:59 CLS Outpatient [id number] 01/10/2014 14:41:00 01/10/2014 23:59:59 CLS Outpatient [id number] 11/10/2013 14:40:00 01/10/2014 00:01:00 DIS Outpatient [id number] 12/13/2013 14:30:00 12/13/2013 23:59:59 CLS Outpatient [id number] 08/29/2013 16:41:00 11/27/2013 00:01:00 DIS Outpatient [id number] 11/17/2013 14:34:00 11/17/2013 23:59:59 CLS Outpatient [id number] 10/27/2013 14:33:00 10/27/2013 23:59:59 CLS Outpatient [id number] 10/20/2013 13:15:00 10/20/2013 23:59:59 CLS Outpatient [id number] 09/29/2013 08:23:00 09/29/2013 23:59:59 CLS Outpatient [id number] 09/26/2013 15:35:00 09/26/2013 23:59:59 CLS Outpatient [id number] 09/26/2013 12:56:00 09/26/2013 23:59:59 CLS Outpatient [id number] 09/15/2013 07:01:00 09/15/2013 23:59:59 CLS Outpatient [id number] 09/08/2013 14:26:00 09/08/2013 23:59:59 CLS Outpatient [id number] 09/02/2013 15:26:00 09/02/2013 23:59:59 CLS Outpatient [id number] 08/25/2013 08:57:00 08/25/2013 23:59:59 CLS Outpatient [id number] 07/20/2013 18:09:00 07/20/2013 23:59:59 CLS Outpatient [id number] 02/04/2019 06:10:00 ACT Inpatient REBA BEAL DO [facility] LDRP PREVIOUS SECTION [id number] 11/28/2013 00:00:00 Document Registration [id number] 02/26/2010 05:46:00 Document Registration
[2019-02-04] MEDS ORDERED: METOCLOPRAMIDE INJ 10 MG/2 ML (REGLAN) IV ONE ×2 (06:30→07:15)
[2019-02-04] MEDS ORDERED: FAMOTIDINE 20MG/2ML IV (PEPCID) IV ONE ×2 (06:30→07:15)
[2019-02-04] MEDS ORDERED: CITRIC ACID/SOB CIT (BICITRA) 30 ML UDC PO ONE ×2 (06:30→07:15)
[2019-02-04 06:35] LABS: BASOPHILS % (AUTO) 0 % (0-10); EOSINOPHILS # (AUTO) 0.1 10^3/uL (0.0-0.3); EOSINOPHILS % (AUTO) 0 % (0-10); HEMATOCRIT 32 % (35-52); HEMOGLOBIN 10.2 G/DL (11.5-16.0); LYMPHOCYTES # (AUTO) 1.4 X 10^3 (1.0-4.0); LYMPHOCYTES % (AUTO) 12 % (12-44); MEAN CORPUSCULAR HEMOGLOBIN 26 PG (25-34); MEAN CORPUSCULAR HGB CONC 32 G/DL (32-36); MEAN CORPUSCULAR VOLUME 80 FL (80-99); MEAN PLATELET VOLUME 10.6 FL (7.4-10.4); MONOCYTES # (AUTO) 0.9 X 10^3 (0.0-1.0); MONOCYTES % (AUTO) 8 % (0-12); NEUTROPHILS # (AUTO) 8.9 X 10^3 (1.8-7.8); NEUTROPHILS % (AUTO) 79 % (42-75); PLATELET COUNT 238 10^3/uL (130-400); RED CELL DISTRIBUTION WIDTH 15.6 % (10.0-14.5); WHITE BLOOD COUNT 11.2 10^3/uL (4.3-11.0)
[2019-02-04] MEDS ORDERED: OXYTOCIN/NORMAL SALINE 500 ML IV SCH (06:56)
--- NOTE | 2019-02-04 06:56 | History & Physical-OB ---
OB - Chief Complaint & HPI Date/Time Date of Admission: Date of Admission: Feb 04, 2019 at 06:10 Date seen by a Provider: Feb 04, 2019 Time Seen by a Provider: 07:10 Chief Complaint/History OB-Reason for Admission/Chief: Section Hx : 5 Hx Para: 3 Expected Date of Delivery: Feb 11, 2019 Gestational Age in Weeks: 39 Gestational Age in Days: 0 Indication for : desires repeat Admission Nurse Assessment Rev: Yes History of Labs O pos Antibody neg RI RPR NR HBsAg NR HIV NR GC neg GBS neg Allergies and Home Medications Allergies Coded Allergies: hydrocodone (Verified Allergy, Intermediate, GI UPSET, 09/11/16) Home Medications Cetirizine HCl 10 Mg Capsule, 10 MG PO DAILY, (Reported) Docusate Sodium 100 Mg Capsule, 100 MG PO BID PRN for CONSTIPATION Prescribed by: KELLY CURRAN on 09/21/16 1015 Ferrous Sulfate 325 Mg Tablet, 325 MG PO BID WITH MEALS Prescribed by: KELLY CURRAN on 09/21/16 1015 Ibuprofen 600 Mg Tablet, 600 MG PO Q6H Prescribed by: KELLY CURRAN on 09/21/16 1015 Oxycodone HCl/Acetaminophen 1 Each Tablet, 1 TAB PO Q4H PRN for MODERATE PAIN Prescribed by: KELLY CURRAN on 09/21/16 1015 Valacyclovir HCl 500 Mg Tablet, 500 MG PO BID, (Reported) Patient Home Medication List Home Medication List Reviewed: Yes OB - History Hx of Present Care: Yes Ultrasounds: Normal mid trimester US Obstetrical Complications: None Medical Complications: None Obstetrical History Hx Termination: No Hx Multiple Gestation: No Hx Stillbirth: No Hx Complication: No Hx Induced Hypertens: No Hx Maternal Gestational Diabet: No Delivery History Hx Dystocia: No Hx Large For Gestational Age I: No Hx Small for Gestational Age I: No Hx Section: No Hx Vaginal Delivery Post C-Sec: No Hx Blood Disorders: No Adverse Rxn to Tranfusion: No (N/A) Patient Past Medical History Hx of HSV, Hx of Lyme Dz, Hx of GTD Social History/Family History HIV/AIDS: No Sexually Transmitted Disease: No Alcohol Use: Denies Use Recreational Drug Use: No Immunizations Tetanus Booster (TDap): Less than 5yrs Date of Influenza Vaccine: Jul 28, 2016 OB - Admission Exam Physical Exam Vitals: Vital Signs 02/04/19 02/04/19 06:15 06:37 Temp 98.6 Pulse 95 Resp 18 B/P (MAP) 147/91 (109) Pulse Ox 98 HEENT: NCAT Heart: Rhythm Normal Lungs: Clear Abdomen: Gravid Extremities: Normal Reflexes: Normal Heart Rate: 130's Accelerations: Accelerations Present Decelerations: No Decelerations Short Term Variability: Present Jail Variability: Average (6-25) Contractions on Admission: >10 Minutes Apart Intensity: Mild Labs Laboratory Tests Test 02/04/19 06:25 Range/Units White Blood Count 11.2 H 4.3-11.0 10^3/uL Red Blood Count 4.00 L 4.35-5.85 10^6/uL Hemoglobin 10.2 L 11.5-16.0 G/DL Hematocrit 32 L 35-52 % Mean Corpuscular Volume 80 80-99 FL Mean Corpuscular Hemoglobin 26 25-34 PG Mean Corpuscular Hemoglobin Concent 32 32-36 G/DL Red Cell Distribution Width 15.6 H 10.0-14.5 % Platelet Count 238 130-400 10^3/uL Mean Platelet Volume 10.6 H 7.4-10.4 FL Neutrophils (%) (Auto) 79 H 42-75 % Lymphocytes (%) (Auto) 12 12-44 % Monocytes (%) (Auto) 8 0-12 % Eosinophils (%) (Auto) 0 0-10 % Basophils (%) (Auto) 0 0-10 % Neutrophils # (Auto) 8.9 H 1.8-7.8 X 10^3 Lymphocytes # (Auto) 1.4 1.0-4.0 X 10^3 Monocytes # (Auto) 0.9 0.0-1.0 X 10^3 Eosinophils # (Auto) 0.1 0.0-0.3 10^3/uL Basophils # (Auto) 0.0 0.0-0.1 10^3/uL OB - Assessment/Plan/Diagnosis Assessment Assessment: section Admission Dx 38 yo @ 39 week Previous x 3 Hx of HSV Admission Status: Inpatient Order (span 2 midnights) Reason for Inpatient Admission: Repeat at 39 weeks Plan Plan: Section REBA BEAL DO Feb 04, 2019 06:56
[2019-02-04] MEDS ORDERED: OXYTOCIN/NORMAL SALINE 1,000 ML IV ONE (06:59)
[2019-02-04] MEDS ORDERED: fentaNYL INJECTION 100 MCG/2 ML AMP ONE (06:59)
[2019-02-04] MEDS ORDERED: ONDANSETRON 4 MG/2 ML (SDV) Z0FRAN ONE (06:59)
[2019-02-04] MEDS ORDERED: MEASLES,MUMPS,RUBELLA 1 EA INJ SC SCH (07:00)
[2019-02-04] MEDS ORDERED: ONDANSETRON 4 MG/2 ML (SDV) Z0FRAN IVP PRN ×2 (07:00→08:30)
[2019-02-04] MEDS ORDERED: TETANUS,DIPTH,PERTUSS P/F (BOOSTRIX) 0.5 ML VIAL IM SCH (07:00)
[2019-02-04] MEDS ORDERED: morphine INJ 4 MG/ML 1 ML (VIAL/SYRINGE) IV PRN (07:00)
[2019-02-04] MEDS ORDERED: LACTATED RINGERS 1,000 ML IV SCH ×2 (07:05)
--- NOTE | 2019-02-04 07:15 | Discharge Inst-Women's Service ---
Discharge Inst-Women's Serv Depart Medication/Instructions New, Converted or Re-Newed RX: RX on Chart Final Diagnosis POD 2 RLTCS Consults/Follow Up Additional Follow Up: Yes Orders/Referrals Dr. Hardwick in 7-10 days, and in 8 weeks Activity Activity: Activity as Tolerated Driving Instructions: No Driving for 1 Week NO SMOKING: NO SMOKING Nothing Inside Vagina: No Douching, No Ophiem, No Tampons Diet Discharge Diet: No Restrictions Symptoms to Report to : Bleeding Excessive, Pain Increased, Fever Over 101 Degrees F, Vaginal Bleeding Increase, Questions/Concerns For Any Problems or Questions: Contact Your Physician Skin/Wound Care Infection Signs and Symptoms: Increased Redness, Foul Odor of Wound, Increased Drainage, Skin Itchy or Has a Rash, Increased Swelling, Temperature Above 101 F Operative Area Clean and Dry: Keep Incision Clean/Dry Stitches/Ismay/Dermabond: Dermabond, Care of Stitches Bathing Instructions: REBA Bonner DO Feb 04, 2019 07:15
[2019-02-04] MEDS ORDERED: ACET-77 PO (07:18)
[2019-02-04] MEDS ORDERED: DOCU100C37 PO (07:18)
[2019-02-04] MEDS ORDERED: OXC5T PO (07:19)
[2019-02-04] MEDS ORDERED: IBUP-844 PO (07:19)
[2019-02-04] MEDS ORDERED: KETOROLAC 30 MG/ML VIAL ONE (08:13)
[2019-02-04] MEDS: KETOROLAC 30 MG/ML VIAL IV SCH ×2 (08:20→14:53)
[2019-02-04] MEDS ORDERED: HYDROmorphone 2 MG/ML VIAL (DILAUDID) IV ONE (08:30)
--- NOTE | 2019-02-04 09:34 | OPERATIVE REPORT ---
DATE OF SERVICE: PREOPERATIVE DIAGNOSES: 1. A 38-year-old G5, P3 at 39 weeks gestation. 2. Previous section x 3. POSTOPERATIVE DIAGNOSES: 1. A 38-year-old G5, P3 at 39 weeks gestation. 2. Previous section x 3. PROCEDURE: Repeat low transverse section. SURGEON: Navjot Beal DO. ANESTHESIA: Spinal. ESTIMATED BLOOD LOSS: 500 mL. URINE OUTPUT: 50 mL clear at the end of the procedure. FLUIDS: 1800 mL of lactated Ringer solution. FINDINGS: Live female weighing 8 pounds 11 ounces, Apgars of 8 and 9. Grossly normal appearing uterus, bilateral fallopian tubes and ovaries. INDICATIONS: This patient was a patient of mine that I had taken care of in previous pregnancies and had done previous cesareans on. She presented for care approximately eight months ago. Her care was unremarkable. However, we did discuss procedure of repeat throughout her care process. We reviewed the risk of this procedure, which she was well aware of. Prior to the section, we reviewed the risk once again. All of her questions were answered to her satisfaction and her 's satisfaction prior to going back to surgery. Consent was obtained. The patient was then taken to the operating room. OPERATIVE REPORT IN DETAIL: Once in the operating room, spinal analgesia was found to be adequate. She was placed in the supine position with a leftward tilt, prepped and draped in a normal sterile fashion. A timeout was performed and anesthesia was tested. I then proceeded with making a Pfannenstiel skin incision to the previously existing scar using a knife and carried down to the underlying fascia using Bovie cautery. The fascial incision was extended laterally using Bovie cautery. The superior aspect of the fascial incision was then grasped with Charisse clamps, tented up and dissected off the underlying rectus muscles. The inferior aspect of the fascial incision was then grasped with Charisse clamps, tented up and dissected off the underlying rectus muscles. The rectus muscles were then dissected down the midline using Breaux scissors, which exposed the peritoneum and we entered bluntly and extended using blunt traction. I then placed an Kameron ring retractor and peritoneal incision, which offered excellent lateral sidewall retraction. I then identified the lower uterine segment, which was found to be thinned out. I made a low transverse incision through the lower uterine segment using a knife, at which point membranes were visualized. I extended the uterine incision laterally and superiorly using bandage scissors. Amniotomy was then performed using Allis clamp. Clear fluid was noted. The was found in the vertex presentation. With gentle fundal pressure, the infant's head was delivered in the incision where the nares and oropharynx were then bulb suctioned. A nuchal cord was reduced x1. Anterior and posterior shoulders were delivered. was then brought to the operative field where the cord was doubly clamped and cut and was handed off to waiting nurses in attendance. Cord blood was collected. Three-vessel cord was intact. Placenta was delivered spontaneously thereafter. IV Pitocin was initiated to facilitate uterine traction and fundus became firmer with bimanual massage. Uterus was then exteriorized and cleared of all endometrial clots and debris. I then proceeded with closing the uterine incision using 0 Vicryl suture in a running locked fashion. Second layer of imbricating 0 Monocryl was placed. Excellent hemostasis was noted after doing this. I then placed the uterus back within the pelvis and copiously irrigated the pelvis using normal saline. Once again, there was active bleeding noted from any of my dissection planes. I then proceeded with placing Interceed antiadhesive over my low transverse incision for adhesive management and reduction of pelvic peritoneal adhesions. I then proceeded with closing the peritoneum and rectus muscles all in one layer using 2-0 Vicryl suture in a running fashion. The fascia was reapproximated using 0 Vicryl suture in a running fashion. The skin was then reapproximated using 4-0 Monocryl in a running subcuticular. Dermabond was applied to the incision with a sterile dressing with adhesive white tape. The patient tolerated the procedure well and was taken to the recovery area in stable condition. Lap and sponge counts were correct at the end of the procedure and instrument counts correct as well. Two grams of Ancef were given preoperatively for infection prophylaxis. Job ID: [id number] DocumentID: [id number] Dictated Date: 02/04/2019 08:47:58 Television Producer Date: 02/04/2019 09:33:53 Dictated By: NAVJOT BEAL DO
[2019-02-04] MEDS: DOCUSATE SODIUM 100 MG (COLACE) CAP PO SCH (11:01)
[2019-02-04] MEDS: ACETAMINOPHEN 500 MG TAB (TYLENOL) PO SCH ×2 (11:03→18:48)
--- NOTE | 2019-02-04 11:30 | NUR ---
REPORT REC'D FROM Devin BUSTOS RN
--- NOTE | 2019-02-04 13:30 | NUR ---
PT ASSISTED TO SITTING POSITION AT EDGE OF BED. PT AMBULATES TO BATHROOM WITHOUT DIFFICULTY. +VOID, 250ML CLEAR YELLOW URINE NOTED. FFU/1, LIGHT RUBRA LOCHIA NOTED. PERICARE PERFORMED PER PT AND S.O. PT BACK TO BED, EXTRA PILLOWS PROVIDED PER PT REQUEST. NO FURTHER NEEDS OR CONCERNS AT THIS TIME.
[2019-02-04] MEDS ORDERED: CATHETER FLUSH 10 ML SYR IV SCH (14:00)
--- NOTE | 2019-02-04 14:45 | NUR ---
TO ROOM FOR TORADOL. 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 NO BLOOD RETURN NOTED WHEN SYRINGE PULLED BACK AND BUBBLE NOTED WHEN ATTEMPTING TO FLUSH IV. DR. BEAL NOTIFIED, OK TO PULL AND LEAVE IV D/C IF PT BLEEDING HAS BEEN APPROPRIATE. IV D/C'D AT THIS TIME AND PT SWITCHED TO PO MOTRIN.
[2019-02-04] MEDS ORDERED: IBUPROFEN 600 MG (MOTRIN) TAB PO ONE (14:59)
[2019-02-04] MEDS: IBUPROFEN 600 MG (MOTRIN) TAB PO SCH ×2 (15:05→21:12)
[2019-02-05 00:03] VITALS: BP 140/83
[2019-02-05] MEDS: IBUPROFEN 600 MG (MOTRIN) TAB PO SCH ×4 (03:11→21:07)
[2019-02-05 04:17] VITALS: BP 147/88
[2019-02-05] MEDS: ACETAMINOPHEN 500 MG TAB (TYLENOL) PO SCH ×3 (04:17→21:07)
[2019-02-05 05:56] LABS: BASOPHILS % (AUTO) 0 % (0-10); EOSINOPHILS # (AUTO) 0.1 10^3/uL (0.0-0.3); EOSINOPHILS % (AUTO) 0 % (0-10); HEMATOCRIT 28 % (35-52); HEMOGLOBIN 9.1 G/DL (11.5-16.0); LYMPHOCYTES # (AUTO) 1.4 X 10^3 (1.0-4.0); LYMPHOCYTES % (AUTO) 12 % (12-44); MEAN CORPUSCULAR HEMOGLOBIN 26 PG (25-34); MEAN CORPUSCULAR HGB CONC 32 G/DL (32-36); MEAN CORPUSCULAR VOLUME 81 FL (80-99); MEAN PLATELET VOLUME 10.4 FL (7.4-10.4); MONOCYTES # (AUTO) 1.1 X 10^3 (0.0-1.0); MONOCYTES % (AUTO) 10 % (0-12); NEUTROPHILS # (AUTO) 9.3 X 10^3 (1.8-7.8); NEUTROPHILS % (AUTO) 78 % (42-75); PLATELET COUNT 216 10^3/uL (130-400); RED CELL DISTRIBUTION WIDTH 15.9 % (10.0-14.5); WHITE BLOOD COUNT 11.9 10^3/uL (4.3-11.0)
[2019-02-05 08:00] VITALS: BP 140/80
--- NOTE | 2019-02-05 08:00 | NUR ---
A.M. ASSESSMENT COMPLETED. VSS. STATES SHE DOESN'T NEED PAIN MEDS AT THIS TIME. PT STATES SHE HAS HAD HER TDAP.ENCOURAGED AMBULATION IN THE DEGROOT X4 TODAY A MINIMUM. STATES UNDERSTANDING. VOIDING WITHOUT PROBLEMS. CARING FOR INFANT IN ROOM. GOOD INTERACTION NOTED.
[2019-02-05] MEDS: DOCUSATE SODIUM 100 MG (COLACE) CAP PO SCH ×2 (09:12→21:07)
--- NOTE | 2019-02-05 10:00 | NUR ---
PT AMBULATING IN THE DEGROOT AT INTERVALS. MOVES WELL.
--- NOTE | 2019-02-05 11:00 | NUR ---
HOLDING . PT STATES SHE FEELS PRETTY WELL AND DOESN'T NEED OXYIR YET.
[2019-02-05 12:00] VITALS: BP 132/63
--- NOTE | 2019-02-05 12:15 | NUR ---
AT BEDSIDE. STATES SHE FELL ASLEEP FOR A LITTLE WHILE. VSS. CONTINUES TO CARE FOR IN ROOM.
--- NOTE | 2019-02-05 12:20 | Postpartum Progress Note ---
Note Note Day # 1 Subjective: Patient is without complaints. Ambulating, voiding. Tolerating a regular diet without nausea or vomiting. Normal lochia. Pain is well controlled with oral pain medications. Objective: Physical Exam: General - Alert and oriented, no apparent distress Abdomen - Soft, appropriately tender to palpation, non-distended, fundus firm at umbilicus Extremities - no edema, negative Karen's bilaterally Incision - c/d/i Assessment: POD 1 RLTCS Acute blood loss anemia Plan: Routine care. Encourage breast feeding. Encourage ambulation. Ferrous sulfate supplementation. Plan for discharge tomorrow Vitals - Labs Vital Signs - I&O Vital Signs Date Time Temp Pulse Resp B/P (MAP) Pulse Ox O2 Delivery O2 Flow Rate FiO2 02/05/19 08:00 98.0 84 18 140/80 (100) 98 Room Air 02/05/19 04:17 98.3 83 18 147/88 (107) 99 Room Air 02/05/19 00:03 98.0 91 18 140/83 (102) 98 Room Air 02/04/19 21:12 98.2 86 18 134/76 (95) Room Air 02/04/19 18:46 98.4 78 18 133/79 (97) Room Air 02/04/19 14:51 98.5 80 18 140/85 (103) 99 Room Air 02/04/19 13:47 Room Air I & O 02/05/19 07:00 Intake Total 2550 ml Output Total 1700 ml Balance 850 ml Labs Laboratory Tests 02/05/19 05:32: White Blood Count 11.9H, Red Blood Count 3.52L, Hemoglobin 9.1L, Hematocrit 28L , Mean Corpuscular Volume 81, Mean Corpuscular Hemoglobin 26, Mean Corpuscular Hemoglobin Concent 32, Red Cell Distribution Width 15.9H, Platelet Count 216, Mean Platelet Volume 10.4, Neutrophils (%) (Auto) 78H, Lymphocytes (%) (Auto) 12 , Monocytes (%) (Auto) 10, Eosinophils (%) (Auto) 0, Basophils (%) (Auto) 0, Neutrophils # (Auto) 9.3H, Lymphocytes # (Auto) 1.4, Monocytes # (Auto) 1.1H, Eosinophils # (Auto) 0.1, Basophils # (Auto) 0.0 REBA BEAL DO Feb 05, 2019 12:20 pm
--- NOTE | 2019-02-05 15:30 | NUR ---
ROUTINE MOTRIN GIVEN. DENIES NEED FOR ADDITIONAL PAIN MEDS AT THIS TIME. SPOUSE AT BEDSIDE HOLDING INFANT.
[2019-02-05 16:00] VITALS: BP 133/68
--- NOTE | 2019-02-05 16:09 | NUR ---
OXYIR 5 MG P.O. FOR C/O RIGHT UPPER SHOULDER/NECK PAIN RATED 6/10 AND ABD PAIN 2/10. WARM BLANKET TO SHOULDER. HOLDING IN BED. OFFEREED TO PLACE INFANT IN CRIB BUT DECLINES AT THIS TIME.
--- NOTE | 2019-02-05 17:00 | NUR ---
PT STATES RIGHT SHOULDER/NECK PAIN IS GONE AND ABD PAIN REMAINS A 2/10. SPOUSE JUST RETURNED WITH TODDLER.
--- NOTE | 2019-02-05 18:30 | NUR ---
PT'S FAMILY AT BEDSIDE. DENIES ANY WANTS OR NEEDS.
--- NOTE | 2019-02-05 20:20 | Anesthesia-Regional Post-Op ---
Regional Patient Condition Mental Status: Alert, Oriented x3 Circulation: Same as Pre-Op Headache: Absent Sensation: Full Recovery Motor Block: Absent Post Op Complications Complications None Follow Up Care/Instructions Patient Instructions None needed. Anesthesia/Patient Condition Patient is doing well, no complaints, stable vital signs, no apparent adverse anesthesia problems. No complications reported per nursing. PARK SINHA CRNA Feb 05, 2019 20:20
--- NOTE | 2019-02-05 21:00 | NUR ---
pt resting in bed. assessment completed. pt c/o pain in right shoulder area. pt denies any need for additional pain meds a this time. will continue to monitor.
[2019-02-05 21:35] VITALS: BP 137/77
--- NOTE | 2019-02-06 01:49 | NUR ---
pt up ambulating in the halls.
[2019-02-06] MEDS: ACETAMINOPHEN 500 MG TAB (TYLENOL) PO SCH ×2 (02:59→10:42)
[2019-02-06] MEDS: IBUPROFEN 600 MG (MOTRIN) TAB PO SCH ×2 (02:59→08:53)
[2019-02-06 03:00] VITALS: BP 136/89
--- NOTE | 2019-02-06 08:00 | NUR ---
INFANT IN NURSERY FOR EXAM.
--- NOTE | 2019-02-06 08:12 | Postpartum Progress Note ---
Note Note Day # 2 Subjective: Patient is without complaints. Ambulating, voiding. Tolerating a regular diet without nausea or vomiting. Normal lochia. Pain is well controlled with oral pain medications. Objective: Physical Exam: General - Alert and oriented, no apparent distress Abdomen - Soft, appropriately tender to palpation, non-distended, fundus firm at umbilicus Extremities - no edema, negative Karen's bilaterally Incision- c/d/i Assessment: POD 2 RLTCS Acute blood loss anemia Plan: Routine care. Encourage breast feeding. Encourage ambulation. Ferrous sulfate supplementation. Plan for discharge today Vitals - Labs Vital Signs - I&O Vital Signs Date Time Temp Pulse Resp B/P (MAP) Pulse Ox O2 Delivery O2 Flow Rate FiO2 02/06/19 03:00 98.0 89 18 136/89 (105) 98 Room Air 02/05/19 21:35 98.2 90 18 137/77 (97) 98 Room Air 02/05/19 16:00 98.4 78 18 133/68 (89) 98 Room Air 02/05/19 12:00 98.2 87 18 132/63 (86) 99 Room Air I & O 02/06/19 07:00 Intake Total 1580 ml Output Total 925 ml Balance 655 ml REBA BEAL DO Feb 06, 2019 08:12
--- NOTE | 2019-02-06 08:20 | NUR ---
DR. BEAL HERE TO SEE PT. PLAN FOR DISCHARGE TODAY.
[2019-02-06 08:45] VITALS: BP 144/74
--- NOTE | 2019-02-06 08:45 | NUR ---
A.M. ASSESSMENT COMPLETED. VSS. WANTS TO WAIT TO TAKE TYLENOL UNTIL AROUND 1030. PLANNING TO GO HOME TODAY.
[2019-02-06] MEDS: DOCUSATE SODIUM 100 MG (COLACE) CAP PO SCH (08:53)
--- NOTE | 2019-02-06 10:08 | NUR ---
DR. KAUFMAN HERE TO SEE .
--- NOTE | 2019-02-06 10:10 | NUR ---
DISCHARGE INSTRUCTIONS REVIEWED WITH COPY TO PT. RXS GIVEN. STATES UNDERSTANDING OF ALL INSTRUCTIONS AND NEED TO F/U SCHEDULED AND NEEDED.
--- NOTE | 2019-02-06 11:07 | NUR ---
OXYIR 5 MG P.O. FOR C/O ABD AND LOW BACK PAIN.
[2019-02-06 11:30] VITALS: BP 144/74
--- NOTE | 2019-02-06 11:30 | NUR ---
DISMISSED AMB FROM [facility] WITH TO FAMILY CAR IN STABLE CONDITION ACC BY SPOUSE AND CORBY GARCIA.
== END 2019-02-06 11:30 | disposition home or self-care (01) | DRG 787 ==
LOC: LDRP 06:10
PROVIDERS: ADMIT Obstetrics & Gynecology; ATTEND Obstetrics & Gynecology
PROC: 10D00Z1 Extraction of Products of Conception, Low, Open Approach (ICD-10-PCS; principal; 2019-02-04 07:21)
DX: O34.211 Maternal care for low transverse scar from previous cesarean delivery (principal); O98.32 Other infections with a predominantly sexual mode of transmission complicating childbirth; A60.00 Herpesviral infection of urogenital system, unspecified; Z79.899 Other long term (current) drug therapy; O69.81X0 Labor and delivery complicated by cord around neck, without compression, not applicable or unspecified; O90.81 Anemia of the puerperium; D62 Acute posthemorrhagic anemia; Z37.0 Single live birth; Z3A.39 39 weeks gestation of pregnancy
CPT/HCPCS: 36415; 85025; 86850; 86900; 86901; 94664

== ENCOUNTER → 2019-03-01 | Outpatient (CLI) | payer BC, MEDICAID ==
[~2019-03-01] MED LIST changes: +ACET-77 PO; +IBUP-844 PO; +OXC5T PO
[2019-03-01 17:33] LABS: BASOPHILS % (AUTO) 0 % (0-10); EOSINOPHILS # (AUTO) 0.3 10^3/uL (0.0-0.3); EOSINOPHILS % (AUTO) 3 % (0-10); HEMATOCRIT 36 % (35-52); HEMOGLOBIN 11.5 G/DL (11.5-16.0); LYMPHOCYTES # (AUTO) 2.3 X 10^3 (1.0-4.0); LYMPHOCYTES % (AUTO) 26 % (12-44); MEAN CORPUSCULAR HEMOGLOBIN 25 PG (25-34); MEAN CORPUSCULAR HGB CONC 32 G/DL (32-36); MEAN CORPUSCULAR VOLUME 79 FL (80-99); MONOCYTES # (AUTO) 0.5 X 10^3 (0.0-1.0); MONOCYTES % (AUTO) 6 % (0-12); NEUTROPHILS # (AUTO) 5.8 X 10^3 (1.8-7.8); NEUTROPHILS % (AUTO) 65 % (42-75); PLATELET COUNT 261 10^3/uL (130-400); RED CELL DISTRIBUTION WIDTH 15.5 % (10.0-14.5); WHITE BLOOD COUNT 8.8 10^3/uL (4.3-11.0)
== END ==
LOC: LAB 17:17
PROVIDERS: ATTEND Obstetrics & Gynecology
DX: R42 Dizziness and giddiness (principal); R22.30 Localized swelling, mass and lump, unspecified upper limb
CPT/HCPCS: 36415; 85025

== ENCOUNTER → 2021-07-12 | Outpatient (CLI) | payer BC, MEDICAID ==
[~2021-07-12] MED LIST changes: -ACET-77 PO; +ACET-78 PO; +CATHETER FLUSH 10 ML SYR IV PRN; -OXYC-471 PO; +OXYC1TAB11 PO
[2021-07-12 08:06] VITALS: BP 162/103
--- NOTE | 2021-07-12 11:21 | Cardiology Stress Test Report ---
Stress Test Report Date of Procedure/Referring: Date of Procedure: Jul 12, 2021 PCP Joanne Sibley,Dnp Admitting Physician Chaim Sibley DO Indications: CP Baseline Vital Signs Vital Signs Date Time Temp Pulse Resp B/P (MAP) Pulse Ox O2 Delivery O2 Flow Rate FiO2 07/12/21 08:06 92 14 162/103 (122) 98 Room Air Summary: Patient receive a resting and stress dose of Myoview, images were acquired and reviewed in the short axis view, horizontal long axis view and vertical long axis view. TID: 0.98 SSS: 3 SDS: 3 EF: 65 1. Breast attenuation with typical female pattern, mild decrease uptake at the mid to apical anterior wall in both resting and stress images, no significant ischemia or infarction on SPECT images 2. Normal left ventricular size with normal contractility, EF 65% Copy Copies To 1: CHAIM SIBLEY BASHAR J MD Jul 12, 2021 11:20
== END ==
LOC: CARD 07:09
PROVIDERS: ATTEND Nurse Practitioner Family
DX: R07.89 Other chest pain (principal)
CPT/HCPCS: 78452; 93017; A9502

== ENCOUNTER → 2021-11-11 | Outpatient (CLI) | payer BC ==
[~2021-11-11] MED LIST changes: -CATHETER FLUSH 10 ML SYR IV PRN
[2021-11-11 16:52] LABS: BASOPHILS % (AUTO) 0 % (0-10); EOSINOPHILS # (AUTO) 0.1 10^3/uL (0.0-0.3); EOSINOPHILS % (AUTO) 1 % (0-10); HEMATOCRIT 34 % (35-52); HEMOGLOBIN 10.9 g/dL (11.5-16.0); LYMPHOCYTES # (AUTO) 2.5 10^3/uL (1.0-4.0); LYMPHOCYTES % (AUTO) 24 % (12-44); MEAN CORPUSCULAR HEMOGLOBIN 28 pg (25-34); MEAN CORPUSCULAR HGB CONC 32 g/dL (32-36); MEAN CORPUSCULAR VOLUME 86 fL (80-99); MEAN PLATELET VOLUME 9.1 fL (9.0-12.2); MONOCYTES # (AUTO) 0.7 10^3/uL (0.0-1.0); MONOCYTES % (AUTO) 6 % (0-12); NEUTROPHILS % (AUTO) 69 % (42-75); PLATELET COUNT 259 10^3/uL (130-400); WHITE BLOOD COUNT 10.2 10^3/uL (4.3-11.0)
--- NOTE | 2021-11-11 17:00 | Diagnostic Imaging Report ---
INDICATION: Acute cough and dyspnea. TECHNIQUE/COMPARISON: PA and lateral views of the chest were obtained with comparison made to the study of 09/15/2013. FINDINGS: The heart size and pulmonary vascularity are within normal limits. The lungs are clear bilaterally. IMPRESSION: Unremarkable chest. Dictated by: Dictated on workstation # [id number]
== END ==
LOC: RAD 16:33
PROVIDERS: ATTEND Nurse Practitioner Family
DX: R05.1 Acute cough (principal); R06.09 Other forms of dyspnea
CPT/HCPCS: 36415; 71046; 85025; 85379

== ENCOUNTER 2022-08-28 10:00 | Emergency (ER) | payer BC ==
[~2022-08-28] VITALS: Ht 165 cm; Wt 72.0 kg
[2022-08-28] MEDS ORDERED: ONDANSETRON 4 MG/2 ML (SDV) Z0FRAN IVP ONE (10:30)
[2022-08-28] MEDS ORDERED: NS IV 1000 ML 1,000 ML IV SCH (10:30)
[2022-08-28] MEDS ORDERED: KETOROLAC 30 MG/ML VIAL IVP ONE (10:30)
--- NOTE | 2022-08-28 10:33 | ED Abdominal Pain ---
General Chief Complaint: Abdominal/GI Problems Stated Complaint: GI TRACT ISSUES Nursing Triage Note: ARRIVED VIA AMB TO ROOM 07 CRYING. STATES SHE NOTICED BLOOD IN HER STOOL YESTERDAY AND STARTED HAVING DIARRHEA LAST NIGHT. PT COMPLAINS OF ABD CRAMPING. Source of Information: Patient Exam Limitations: No Limitations History of Present Illness Date Seen by Provider: Aug 28, 2022 Time Seen by Provider: 10:20 Initial Comments 41-year-old female presents to the emergency room with a chief complaint of abdominal cramping and diarrhea onset yesterday morning early upon awakening. Patient is recently been on amoxicillin for a sinus infection. She states last evening she noted blood in her stool. She has had low-grade fever. She called and spoke with [facility] clinic last night who reportedly advised her she could take I modium, she has been taking it without any relief of diarrhea. She states at least 15 diarrheal episodes over the night. She is nauseated. No actual vomiting. No URI symptoms. Her only prior abdominal surgeries are 4 C- sections. She relates a history of being on multiple rounds of antibiotics since late April for vaginal infections, bladder infections and sinus. She is on an egkw-qkw-seeqmcy probiotic. She is quite tearful and anxious on arrival. All other review of systems reviewed and negative except as stated. Timing/Duration: 1-2 Days Severity/Quality: Moderate, Cramping Location: Generalized Abdomen Radiation: No Radiation Activities at Onset: None Associated Symptoms: Nausea/Vomiting Allergies and Home Medications Allergies Coded Allergies: hydrocodone (Verified Adverse Reaction, Intermediate, GI UPSET, 02/04/19) Patient Home Medication List Home Medication List Reviewed: Yes Acetaminophen (Acetaminophen) 500 Mg Tablet, 1,000 MG PO Q6HR Prescribed by: REBA BEAL on 02/04/19717 Cetirizine HCl (Zyrtec) 10 Mg Capsule, 10 MG PO DAILY, (Reported) Entered as Reported by: RAMIRO HARRISON on 09/11/16 1540 Docusate Sodium (Docusate Sodium) 100 Mg Capsule, 100 MG PO BID Prescribed by: REBA BEAL on 02/04/19717 Ferrous Sulfate (Iron) 325 Mg Tablet, 325 MG PO BID WITH MEALS Prescribed by: KELLY CURRAN on 09/21/16 1015 Ibuprofen (Ibu) 600 Mg Tablet, 600 MG PO Q6HR Prescribed by: REBA BEAL on 02/04/19718 Ondansetron (Ondansetron Odt) 4 Mg Tab.rapdis, 4 MG SL Q8H PRN for NAUSEA/VOMITING Prescribed by: DEMETRA TRUJILLO on 08/28/22 1255 Oxycodone Hcl (Oxycodone IR) 5 Mg Tab, 5 MG PO Q4HR PRN for PAIN-SEVERE Prescribed by: REBA BEAL on 02/04/19718 Vancomycin HCl (Vancocin HCl) 125 Mg Capsule, 125 MG PO QID Prescribed by: DEMETRA TRUJILLO on 08/28/22 1255 Review of Systems Review of Systems Constitutional: see HPI EENTM: No Symptoms Reported Respiratory: No Symptoms Reported Cardiovascular: No Symptoms Reported Gastrointestinal: Abdominal Pain, Blood Streaked Stools, Diarrhea (15x/24h), Nausea Genitourinary: No Symptoms Reported Musculoskeletal: no symptoms reported Skin: no symptoms reported Psychiatric/Neurological: Anxiety All Other Systems Reviewed Negative Unless Noted: Yes Past Ajcwyvr-Bhxnzy-Izknpj Hx Patient Social History Substance use?: No Alcohol Use?: No Immunizations Up To Date Tetanus Booster (TDap): Less than 5yrs Seasonal Allergies Seasonal Allergies: Yes Past Medical History Surgeries: Yes ( X3 AND NASAL SURGERY, D&C) Respiratory: No Cardiac: No Neurological: No 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) Female Reproductive Disorders: Denies Sexually Transmitted Disease: No HIV/AIDS: No Genitourinary: No Gastrointestinal: Yes Gastroesophageal Reflux Musculoskeletal: No Endocrine: No HEENT: No Loss of Vision: Denies Hearing Impairment: Denies Cancer: No Psychosocial: No Integumentary: No Blood Disorders: No Adverse Reaction/Blood Tranf: No (N/A) Family Medical History Diabetes mellitus 19 FATHER Hypertension 19 FATHER 19 MOTHER Physical Exam Vital Signs Vital Signs - First Documented 08/28/22 10:05 Temp 36.4 Pulse 91 Resp 16 B/P (MAP) 139/98 (112) Pulse Ox 99 O2 Delivery Room Air Capillary Refill : Less Than 3 Seconds Height/Weight/BMI Height: 5'6.00" Weight: 208lbs. 0.6oz. [id number]; 26.00 BMI Method:Stated General Appearance: WD/WN, mild distress (tearful/anxious) HEENT: PERRL/EOMI Respiratory: lungs clear, normal breath sounds, no respiratory distress, no accessory muscle use Cardiovascular: regular rate, rhythm Gastrointestinal: soft, tenderness (diffude mild tenderness, hyperactive BS; no rebound or guarding) Rectal: other (slightly mucousy stool appears blooddy; hemoccult pos at bedside; no external hemorrhoids or internal palpated) Extremities: normal range of motion, normal inspection Neurologic/Psychiatric: alert, oriented x 3, other (anxious and tearful) Skin: normal color, warm/dry Progress/Results/Core Measures Results/Orders Lab Results Laboratory Tests Test 08/28/22 10:50 Range/Units White Blood Count 14.5 H 4.3-11.0 10^3/uL Red Blood Count 5.09 3.80-5.11 10^6/uL Hemoglobin 13.9 11.5-16.0 g/dL Hematocrit 43 35-52 % Mean Corpuscular Volume 84 80-99 fL Mean Corpuscular Hemoglobin 27 25-34 pg Mean Corpuscular Hemoglobin Concent 33 32-36 g/dL Red Cell Distribution Width 13.2 10.0-14.5 % Platelet Count 298 130-400 10^3/uL Mean Platelet Volume 9.8 9.0-12.2 fL Immature Granulocyte % (Auto) 0 % Neutrophils (%) (Auto) 83 H 42-75 % Lymphocytes (%) (Auto) 12 12-44 % Monocytes (%) (Auto) 5 0-12 % Eosinophils (%) (Auto) 0 0-10 % Basophils (%) (Auto) 0 0-10 % Neutrophils # (Auto) 12.0 H 1.8-7.8 10^3/uL Lymphocytes # (Auto) 1.7 1.0-4.0 10^3/uL Monocytes # (Auto) 0.8 0.0-1.0 10^3/uL Eosinophils # (Auto) 0.0 0.0-0.3 10^3/uL Basophils # (Auto) 0.0 0.0-0.1 10^3/uL Immature Granulocyte # (Auto) 0.1 0.0-0.1 10^3/uL Neutrophils % (Manual) 81 % Lymphocytes % (Manual) 15 % Monocytes % (Manual) 4 % Eosinophils % (Manual) 0 % Basophils % (Manual) 0 % Band Neutrophils 0 % Blood Morphology Comment NORMAL Sodium Level 138 135-145 MMOL/L Potassium Level 3.6 3.6-5.0 MMOL/L Chloride Level 104 98-107 MMOL/L Carbon Dioxide Level 23 21-32 MMOL/L Anion Gap 11 5-14 MMOL/L Blood Urea Nitrogen 6 L 7-18 MG/DL Creatinine 0.72 0.60-1.30 MG/DL Estimat Glomerular Filtration Rate 109 BUN/Creatinine Ratio 8 Glucose Level 110 H 70-105 MG/DL Calcium Level 9.7 8.5-10.1 MG/DL C-Reactive Protein High Sensitivity 0.46 0.00-0.50 MG/DL Micro Results Microbiology 08/28/22 C. difficile GDH Antigen & Toxins - Final, Resulted 08/28/22 Stool Culture, Resulted Pending My Orders Orders - DEMETRA TRUJILLO MD Ed Iv/Invasive Line Start (08/28/22 10:28) Cbc With Automated Diff (08/28/22 10:28) Basic Metabolic Panel (08/28/22 10:28) Fecal Occult Bedside (08/28/22 10:28) Stool Culture (08/28/22 10:28) C Difficile Ag + Toxin A/B. (08/28/22 10:28) Isolation Central Supply Req (08/28/22 10:28) Hs C Reactive Protein (08/28/22 10:28) Ns Iv 1000 Ml (Sodium Chloride 0.9%) (08/28/22 10:30) Ondansetron Injection (Zofran Injectio (08/28/22 10:30) Ketorolac Injection (Toradol Injection) (08/28/22 10:30) Manual Differential (08/28/22 10:50) Vancomycin Oral Capsule (Vancomycin Oral (08/28/22 12:39) Medications Given in ED Current Medications Medications Dose Ordered Sig/Marine Route Start Time Stop Time Status Last Admin Dose Admin Ketorolac Tromethamine 15 mg ONCE ONCE IVP 08/28/22 10:30 08/28/22 10:31 DC 08/28/22 10:52 15 MG Ondansetron HCl 4 mg ONCE ONCE IVP 08/28/22 10:30 08/28/22 10:31 DC 08/28/22 10:53 4 MG Vital Signs/I&O 08/28/22 10:05 Temp 36.4 Pulse 91 Resp 16 B/P (MAP) 139/98 (112) Pulse Ox 99 O2 Delivery Room Air Blood Pressure Mean: 112 Progress Progress Note : Time: 12:51 Progress Note Patient evaluation today includes physical examination, basic laboratory studies with a stool culture and C. difficile test. Patient is positive for C. difficile today. She has been given nausea medications, Toradol and IV fluids for her symptoms. She is feeling much better after these medications. I discussed with her management of the C. difficile with oral vancomycin 125 mg 4 times daily for 10 days. She is currently on a probiotic and will continue. We will send nausea medicines home with her. Advised her to recheck with her primary care physician in 1 week to 10 days. Advised no Imodium during treatment, return precautions given. No clinical or objective findings of bowel obstruction, toxic megacolon. Her abdomen is soft, nondistended. No concerns for sepsis. Plan of care communicated to the patient. All questions are sought and a nswered. Patient is stable and improved at discharge. Departure Impression Primary Impression: C. difficile colitis Disposition: HOME, SELF-CARE Condition: Improved Departure-Patient Inst. Decision time for Depature: 12:53 Referrals: CHAIM EARLY DO (PCP/Family) Primary Care Physician Patient Instructions: Clostridioides difficile Add. Discharge Instructions: Drink plenty of fluids to stay well-hydrated. Oral vancomycin 125 mg tablets, antibiotic, 4 times daily for 10 days. Continue your probiotic. You may take antacids as needed. Ondansetron/Zofran 4 mg tablets every 6-8 hours as needed for nausea. If you develop further high fever, worsening abdominal pain, vomiting or any other emergent, concerning symptoms please come back to the emergency department for reevaluation. Please follow-up with your primary care provider in 1 week to 10 days. Good handwashing/hygiene at home as C. difficile infection can be very easy to spread. You can take fyoc-slm-tvuxpan ibuprofen or Tylenol with food every 6 hours as needed for pain. Scripts Vancomycin HCl (Vancocin HCl) 125 Mg Capsule 125 MG PO QID for 10 Days, #39 CAP Prov: DEMETRA TRUJILLO MD 08/28/22 Ondansetron (Ondansetron Odt) 4 Mg Tab.rapdis 4 MG SL Q8H PRN for NAUSEA/VOMITING, #20 TAB Prov: DEMETRA TRUJILLO MD 08/28/22 Work/School Note: Work Release Form Date Seen in the Emergency Department: Aug 28, 2022 Return to Work: Sep 01, 2022 DEMETRA TRUJILLO MD Aug 28, 2022 10:33
[2022-08-28 11:02] LABS: BASOPHILS % (AUTO) 0 % (0-10); EOSINOPHILS % (AUTO) 0 % (0-10); HEMATOCRIT 43 % (35-52); HEMOGLOBIN 13.9 g/dL (11.5-16.0); LYMPHOCYTES # (AUTO) 1.7 10^3/uL (1.0-4.0); LYMPHOCYTES % (AUTO) 12 % (12-44); MEAN CORPUSCULAR HEMOGLOBIN 27 pg (25-34); MEAN CORPUSCULAR HGB CONC 33 g/dL (32-36); MEAN CORPUSCULAR VOLUME 84 fL (80-99); MEAN PLATELET VOLUME 9.8 fL (9.0-12.2); MONOCYTES # (AUTO) 0.8 10^3/uL (0.0-1.0); MONOCYTES % (AUTO) 5 % (0-12); NEUTROPHILS % (AUTO) 83 % (42-75); PLATELET COUNT 298 10^3/uL (130-400); WHITE BLOOD COUNT 14.5 10^3/uL (4.3-11.0)
[2022-08-28 11:25] LABS: CALCIUM 9.7 MG/DL (8.5-10.1); CREATININE SERUM 0.72 MG/DL (0.60-1.30); POTASSIUM 3.6 MMOL/L (3.6-5.0)
[2022-08-28 11:27] LABS: BAND NEUTROPHILS 0 %; BASOPHILS % (MANUAL) 0 %; EOSINOPHILS % (MANUAL) 0 %; LYMPHOCYTES % (MANUAL) 15 %; MONOCYTES % (MANUAL) 4 %; NEUTROPHILS % (MANUAL) 81 %; RBC MORPH NORMAL
[2022-08-28] MEDS ORDERED: VANCOMYCIN 125 MG CAPSULE PO STA (12:39)
[2022-08-28] MEDS ORDERED: ONDA4TAB11 SL (12:55)
[2022-08-28] MEDS ORDERED: VANC125C11 PO (12:55)
[2022-08-28 13:13] VITALS: BP 124/79
== END 2022-08-28 13:12 | disposition home or self-care (01) ==
LOC: EDUNIT# 10:00 → ER 10:02
DX: A04.72 Enterocolitis due to Clostridium difficile, not specified as recurrent (principal); Z88.5 Allergy status to narcotic agent; Z28.310 Unvaccinated for COVID-19
CPT/HCPCS: 36415; 80048; 82274; 85007; 85027; 86141; 87015; 87045; 87046; 87324; 87449; 87899

== ENCOUNTER → 2022-11-21 | Outpatient (CLI) | payer BC ==
[~2022-11-21] MED LIST changes: +ONDA4TAB11 SL; +VANC125C11 PO
--- NOTE | 2022-11-21 17:41 | Diagnostic Imaging Report ---
PROCEDURE: US Thyroid. TECHNIQUE: Multiple real-time grayscale images were obtained of the thyroid in various projections. INDICATION: Thyromegaly. COMPARISON: 01/19/2014 FINDINGS: Right lobe measures 4.7 x 1.4 x 1.7 cm and the left measures 4.4 x 1.3 x 1.8 cm. Isthmus measures 2 mm in AP thickness. Multiple thyroid nodules are identified bilaterally. There is anechoic cystic-appearing lesion within the mid region of the right lobe that measures 0.5 x 0.3 x 0.3 cm. Complex mixed solid and cystic lesion is also seen within the mid region of the left lobe. It measures 1.5 x 0.8 x 1.3 cm. 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 Given its size, this could be followed with repeat sonogram in one year. Similar-appearing mixed solid cystic lesion is also seen within the inferior margins of the right lobe and measures 1.2 x 0.6 x 1.1 cm. This too could be followed. IMPRESSION: 1. Multiple bilateral thyroid lesions, as described above. Given their size, follow-up in one year could be performed. Dictated by: Dictated on workstation # [id number]
== END ==
LOC: RAD 12:23
PROVIDERS: ATTEND Nurse Practitioner Family
DX: E07.89 Other specified disorders of thyroid (principal)
CPT/HCPCS: 76536

== ENCOUNTER → 2023-05-25 | Outpatient (CLI) | payer BC | LOC: CARD 16:24 | PROVIDERS: ATTEND Nurse Practitioner Family | DX: I10 Essential (primary) hypertension (principal); R42 Dizziness and giddiness | CPT/HCPCS: 93005 ==

== ENCOUNTER → 2023-06-01 | Outpatient (CLI) | payer BC | LOC: CARD 08:13 | PROVIDERS: ATTEND Nurse Practitioner Family | DX: R42 Dizziness and giddiness (principal); I10 Essential (primary) hypertension | CPT/HCPCS: 93306 ==